=== PATIENT | male | born 2000 | race Caucasian/White ===

== ENCOUNTER → 2020-05-12 | Outpatient (CLI) | payer OTHER ==
--- NOTE | 2020-05-14 12:17 | ECHO ---
DATE OF PROCEDURE: 05/12/2020 Age: Gender: Male Height: 187 cm Weight: 74 kg REFERRING PHYSICIAN: Saroj Miles MD INDICATION: Heart murmur, pectus excavatum MEASUREMENTS: IVS 0.9 LV 4.8 LVPW 0.9 LA 3.3 Aorta 2.7 IVC 1.3 Mitral E wave velocity is 76; A wave 54 E prime septal 10.80 E prime lateral 9.5 FINDINGS: This study is of good technical quality. The patient is in sinus rhythm. Normal LV size with normal LV systolic function. Estimated LVEF 60-65%. Normal diastolic function. Right ventricle is also normal size and systolic function. Both atria appear normal. All four cardiac valves were reasonably well seen and appear normal. No pericardial effusion is noted. Inferior vena cava is normal size and appropriately collapses with inspiration indicative of normal central venous pressure. Aortic root, aortic arch and visualized segment of abdominal aorta all appear normal. Doppler interrogation reveals competency of all four cardiac valves without stenosis or insufficiency of either one of them. Mitral inflow pattern and tissue Doppler imaging of mitral annulus reveals normal diastolic dysfunction of left ventricle. CONCLUSIONS: 1. Study is of good technical quality, patient is in sinus rhythm. 2. Normal echocardiogram. 3. No obvious structural abnormality to account for patient's heart murmur. [facility]
== END ==
LOC: M CARPUL 10:39
PROVIDERS: ATTEND Thoracic Surgery (Cardiothoracic Vascular Surgery)
DX: Q67.6 Pectus excavatum (principal); R01.1 Cardiac murmur, unspecified